=== PATIENT | male | born 1950 | race Caucasian/White ===

== ENCOUNTER 2017-07-31 09:11 | Outpatient (CLI) | payer OTHER, MEDICARE | END 2017-07-31 09:12 | disposition home or self-care (01) | LOC: SC 09:11 | PROVIDERS: ATTEND Internal Medicine Pulmonary Disease | DX: G47.10 Hypersomnia, unspecified (principal); G47.8 Other sleep disorders; G47.00 Insomnia, unspecified; R06.83 Snoring; E66.9 Obesity, unspecified; Z68.32 Body mass index [BMI] 32.0-32.9, adult | CPT/HCPCS: 99203; 99212 ==

== ENCOUNTER 2017-08-26 19:37 | Outpatient (CLI) | payer MEDICARE, OTHER | END 2017-08-26 19:38 | disposition home or self-care (01) | LOC: SC 19:37 | PROVIDERS: ATTEND Internal Medicine Pulmonary Disease | DX: G47.33 Obstructive sleep apnea (adult) (pediatric) (principal); G47.61 Periodic limb movement disorder | CPT/HCPCS: 95810 ==

== ENCOUNTER 2017-09-07 09:43 | Outpatient (CLI) | payer MEDICARE, OTHER | END 2017-09-07 09:44 | disposition short-term general hospital (02) | LOC: EMS 09:43 | PROVIDERS: ATTEND Surgery | DX: R55 Syncope and collapse (principal) | CPT/HCPCS: A0425; A0427 ==

== ENCOUNTER 2017-11-07 09:19 | Outpatient (CLI) | payer OTHER, MEDICARE | END 2017-11-07 09:20 | disposition home or self-care (01) | LOC: SC 09:19 | PROVIDERS: ATTEND Nurse Practitioner Family | DX: G47.33 Obstructive sleep apnea (adult) (pediatric) (principal); G47.61 Periodic limb movement disorder | CPT/HCPCS: 99212; 99214 ==

== ENCOUNTER → 2020-03-04 | Outpatient (CLI) | payer MEDICARE, OTHER | END | disposition short-term general hospital (02) | LOC: EMS 15:56 | PROVIDERS: ATTEND Surgery | DX: R50.9 Fever, unspecified (principal); R53.1 Weakness; R53.81 Other malaise | CPT/HCPCS: A0425; A0427 ==

== ENCOUNTER 2021-02-13 20:01 | Outpatient (CLI) | payer MEDICARE, OTHER | END 2021-02-13 20:02 | disposition short-term general hospital (02) | LOC: EMS 20:01 | DX: R53.1 Weakness (principal); R53.83 Other fatigue; R41.0 Disorientation, unspecified; R06.09 Other forms of dyspnea; R50.9 Fever, unspecified; R82.998 Other abnormal findings in urine | CPT/HCPCS: A0425; A0429; A0888 ==